=== PATIENT | female | born 1935 | race Caucasian/White ===

== ENCOUNTER 2017-12-06 06:34 | Inpatient (IN) | payer MEDICARE, OTHER ==
[2017-12-06] MEDS: IV NORMAL SALINE 1000ML BAG 1,000 ML IV ×3 (07:52→17:56)
[2017-12-06] MEDS ORDERED: fentaNYL PF VIAL 100 MCG/2 ML VIAL IV ×4 (08:00→12:45)
[2017-12-06] MEDS: ONDANSETRON PF 4 MG/2 ML VIAL. IV (08:00)
[2017-12-06] MEDS ORDERED: ACETAMINOPHEN 325 MG TABLET. PO (08:30)
[2017-12-06] MEDS ORDERED: ONDANSETRON PF 4 MG/2 ML VIAL. IV ×2 (08:30→12:45)
[2017-12-06 08:31] LABS: ADD MAN DIFF? NO
[2017-12-06 08:44] LABS: BASO % 0 % (0-3); EOS % 0 % (0-3); HEMATOCRIT 41.9 % (36.0-47.0); HEMOGLOBIN 13.9 g/dL (12.0-15.5); LYMPH % 8 % (24-48); MEAN CORPUSCULAR HEMOGLOBIN 28 pg (25-35); MEAN CORPUSCULAR HGB CONC 33 g/dL (31-37); MEAN CORPUSCULAR VOLUME 84 fL (79-100); MONO % 8 % (0-9); NEUT # 11.1 x10^3uL (1.8-7.7); NEUT % 84 % (31-73); PLATELET COUNT 219 x10^3/uL (140-400); RED BLOOD COUNT 5.02 x10^6/uL (3.50-5.40); RED CELL DISTRIBUTION WIDTH 14.3 % (11.5-14.5); WHITE BLOOD COUNT 13.2 x10^3/uL (4.0-11.0)
[2017-12-06 08:46] LABS: ANION GAP 11 (6-14); BLOOD UREA NITROGEN 17 mg/dL (7-20); BUN/CREATININE RATIO 21 (6-20); CALCIUM 9.5 mg/dL (8.5-10.1); CARBON DIOXIDE 26 mmol/L (21-32); CHLORIDE 103 mmol/L (98-107); CREATININE 0.8 mg/dL (0.6-1.0); GFR 68.5; GLUCOSE 143 mg/dL (70-99); POTASSIUM 3.6 mmol/L (3.5-5.1); SODIUM 140 mmol/L (136-145)
[2017-12-06 08:52] LABS: ALBUMIN 4.1 g/dL (3.4-5.0); ALBUMIN/GLOBULIN RATIO 1.2 (1.0-1.7); ALK PHOS 86 U/L (46-116); ALT (SGPT) 26 U/L (14-59); AST (SGOT) 20 U/L (15-37); TOTAL BILIRUBIN 0.7 mg/dL (0.2-1.0); TOTAL PROTEIN 7.4 g/dL (6.4-8.2)
[2017-12-06] MEDS ORDERED: ROCURONIUM 50 MG/5 ML VIAL. (12:33)
[2017-12-06] MEDS ORDERED: LIDOCAINE 2% PF Vial for OR 5 ML VIAL. (12:34)
[2017-12-06] MEDS ORDERED: PROPOFOL 20 ML IV (12:34)
[2017-12-06] MEDS ORDERED: fentaNYL PF VIAL 250 MCG/5 ML VIAL (12:34)
[2017-12-06] MEDS ORDERED: ONDANSETRON PF 4 MG/2 ML VIAL. (12:34)
[2017-12-06] MEDS ORDERED: DEXAMETHASONE SOD PHOS 20 MG/5 ML VIAL. (12:34)
[2017-12-06] MEDS ORDERED: LIDOCAINE 1% PF 2 ML VIAL. ID (12:45)
[2017-12-06] MEDS ORDERED: PROCHLORPERAZINE 10 MG/2 ML VIAL. IV (12:45)
[2017-12-06] MEDS ORDERED: HYDROmorphone 2 MG/ML VIAL IV (12:45)
[2017-12-06] MEDS ORDERED: MORPHINE SULFATE 2 MG/ML DISP.SYRIN. IV (12:45)
[2017-12-06] MEDS: MORPHINE SULFATE 5 MG, KETOROLAC 30 MG, ROPIVacaine 0.5% PF 60 ML, EPINEPHrine 0.5 MG i... INT ART (13:32)
[2017-12-06] MEDS ORDERED: SEVOFLURANE > 120 MINUTES. IH (15:05)
[2017-12-06] MEDS: IV RINGERS,LACTATED 1000ML 1,000 ML IV (15:30)
[2017-12-06 16:39] LABS: INR 1.1 (0.8-1.1); PROTHROMBIN TIME PATIENT 13.9 SEC (11.7-14.0)
[2017-12-06] MEDS: WARFARIN 5 MG TABLET. PO (17:54)
[2017-12-06] MEDS: ceFAZolin SODIUM IV Push 1 GM VIAL. IVP (17:54)
[2017-12-07] MEDS: IV NORMAL SALINE 1000ML BAG 1,000 ML IV (02:39)
[2017-12-07] MEDS: ceFAZolin SODIUM IV Push 1 GM VIAL. IVP ×2 (03:00→12:41)
[2017-12-07 05:26] LABS: ADD MAN DIFF? NO
[2017-12-07 05:39] LABS: BASO % 0 % (0-3); EOS % 0 % (0-3); HEMOGLOBIN 10.1 g/dL (12.0-15.5); LYMPH # 0.5 x10^3/uL (1.0-4.8); LYMPH % 3 % (24-48); MEAN CORPUSCULAR HEMOGLOBIN 28 pg (25-35); MEAN CORPUSCULAR HGB CONC 34 g/dL (31-37); MEAN CORPUSCULAR VOLUME 83 fL (79-100); MONO # 1.3 x10^3/uL (0.0-1.1); MONO % 9 % (0-9); NEUT # 12.3 x10^3uL (1.8-7.7); NEUT % 87 % (31-73); PLATELET COUNT 181 x10^3/uL (140-400); RED BLOOD COUNT 3.61 x10^6/uL (3.50-5.40); RED CELL DISTRIBUTION WIDTH 14.2 % (11.5-14.5); WHITE BLOOD COUNT 14.1 x10^3/uL (4.0-11.0)
[2017-12-07 06:04] LABS: ANION GAP 10 (6-14); BLOOD UREA NITROGEN 17 mg/dL (7-20); CALCIUM 8.5 mg/dL (8.5-10.1); CARBON DIOXIDE 23 mmol/L (21-32); CHLORIDE 103 mmol/L (98-107); GLUCOSE 191 mg/dL (70-99); POTASSIUM 4.4 mmol/L (3.5-5.1); SODIUM 136 mmol/L (136-145)
[2017-12-07 06:11] LABS: INR 1.2 (0.8-1.1); PROTHROMBIN TIME PATIENT 14.8 SEC (11.7-14.0)
[2017-12-07] MEDS: LEVOTHYROXINE 100 MCG TABLET PO (09:45)
[2017-12-07] MEDS: METOPROLOL SUCC 24HR ER 25 MG TAB.ER.24H. PO (10:00)
[2017-12-07] MEDS: traMADol 50 MG TABLET PO ×2 (12:41→18:49)
[2017-12-07] MEDS: WARFARIN 5 MG TABLET. PO (17:11)
[2017-12-07] MEDS: ATORVASTATIN CALCIUM 20 MG TABLET PO (21:00)
[2017-12-08 04:47] LABS: HEMATOCRIT 27.9 % (36.0-47.0); HEMOGLOBIN 9.6 g/dL (12.0-15.5); MEAN CORPUSCULAR HEMOGLOBIN 29 pg (25-35); MEAN CORPUSCULAR HGB CONC 34 g/dL (31-37); MEAN CORPUSCULAR VOLUME 83 fL (79-100); PLATELET COUNT 156 x10^3/uL (140-400); RED BLOOD COUNT 3.35 x10^6/uL (3.50-5.40); RED CELL DISTRIBUTION WIDTH 14.4 % (11.5-14.5); WHITE BLOOD COUNT 10.3 x10^3/uL (4.0-11.0)
[2017-12-08 05:10] LABS: INR 1.5 (0.8-1.1); PROTHROMBIN TIME PATIENT 17.2 SEC (11.7-14.0)
[2017-12-08] MEDS: LEVOTHYROXINE 100 MCG TABLET PO (08:14)
[2017-12-08] MEDS: METOPROLOL SUCC 24HR ER 25 MG TAB.ER.24H. PO (08:15)
[2017-12-08] MEDS: traMADol 50 MG TABLET PO ×2 (08:16→12:38)
[2017-12-08] MEDS: WARFARIN 3 MG TABLET. PO (12:39)
== END 2017-12-08 14:15 | disposition home health service (06) | DRG 470 ==
LOC: ER 06:34 → 4 NORTH 07:50
PROC: 0SRS0JZ Replacement of Left Hip Joint, Femoral Surface with Synthetic Substitute, Open Approach (ICD-10-PCS; principal; 2017-12-06 13:00)
DX: S72.002A Fracture of unspecified part of neck of left femur, initial encounter for closed fracture (principal); E05.90 Thyrotoxicosis, unspecified without thyrotoxic crisis or storm; D62 Acute posthemorrhagic anemia; E03.9 Hypothyroidism, unspecified; E78.00 Pure hypercholesterolemia, unspecified; E78.5 Hyperlipidemia, unspecified; Z96.641 Presence of right artificial hip joint; I10 Essential (primary) hypertension; M19.90 Unspecified osteoarthritis, unspecified site; W01.0XXA Fall on same level from slipping, tripping and stumbling without subsequent striking against object, initial encounter; Y93.89 Activity, other specified; Y92.89 Other specified places as the place of occurrence of the external cause; Y99.8 Other external cause status
CPT/HCPCS: 36415; 71045; 72170; 73502; 80048; 80053; 83735; 85025; 85027; 85610; 88305; 88311; 93005; 97110-GP; 97116-GP; 97162-GP; 97166-GO; 97530-GO; 97530-GP; 97535-GO; 99285-25; J0171; J0690; J1100; J1885; J2270; J2405; J2704; J2795; J3010; J7030; J7120

== ENCOUNTER → 2019-06-04 | Outpatient (CLI) | payer MEDICARE, OTHER ==
[2017-12-08 10:00] VITALS: BP 103/65
[~2019-06-04] MED LIST: AMLO10TA8 PO; ATOR20TA58 PO; BUPIVACAINE MPF 0.5% 10 ML VIAL for KCIC. IM ONE; CONTRAST GIVEN. MC PRN; IOHEXOL 300 MG/ML 50 ML VIAL. INT ART ONE; LEVO100T PO; LIDOCAINE 1% Multi-Dose 20 ML VIAL. ID ONE; METO-239 PO; TRAM50TA PO; methylPREDNISolone ACETATE 40 MG/ML VIAL. INT ART ONE
--- NOTE | 2019-06-04 15:09 | KCIC ---
PROCEDURE: Right bicipital groove steroid injection under fluoroscopic guidance INDICATION: Shoulder pain. CONTRAST: Approximately 2 cc Omnipaque FINDINGS: The risks, benefits and alternatives to the procedure were discussed with the patient. A timeout was performed to confirm the patient's identity and laterality of the injection. Utilizing sterile technique, fluoroscopic guidance and local anesthesia with 1% lidocaine, the right bicipital groove was accessed utilizing a 25-gauge needle. A small amount contrast was used to confirm the location of the needle tip. Subsequently, a mixture of 1 cc lidocaine, 1 cc bupivacaine and 1 cc (40 mg) Depo Medrol was injected. There were no immediate complications. Fluoroscopy time: 1 minute 45 seconds Impression: Technically successful right bicipital groove injection under fluoroscopic guidance. Electronically signed by: BE SEPULVEDA MD (06/04/2019 3:07 PM) [id number]
== END ==
LOC: KCIC 12:42
PROVIDERS: ATTEND Orthopaedic Surgery Sports Medicine
DX: M25.511 Pain in right shoulder (principal)
CPT/HCPCS: 20610; 77002; J1030; Q9967